=== PATIENT | male | born 1960 | race Caucasian/White ===

== ENCOUNTER 2017-07-26 16:37 | Inpatient (IN) | payer OTHER ==
[~2017-07-26] VITALS: Ht 193 cm; Wt 80.5 kg
[~2017-07-26 16:37] MED LIST: CALCIUM600 MG PO; DICLOFENAC SODI75 MG PO; KEFLEX500 MG PO; LANTUS100 UNITS/ SUB-Q; LOMOTIL TABLET1 EACH PO; METFORMIN HCL500 MG PO; MULTIVITAMINS1 EAC7 PO; NOVOLOG100 UNIT/1 SUB-Q; TAGAMET HB200 MG PO
[2017-07-26] MEDS ORDERED: LYRICA50 MG PO (17:15)
--- NOTE | 2017-07-27 07:29 | EKG ---
[facility] [address] [facility] [place] [address] Signed Accelerated Junctional rhythm Abnormal ECG No previous ECGs available Confirmed by HUGO SIMS MD [id number] on 07/27/2017 7:29:07 AM Electronically Signed By: HUGO SIMS MD 07/27/17 0729 PATIENT NAME: HORTENSIACLARK CINDA Electrocardiogram DATE OF : 62 PHYSICIAN: HUGO SIMS MD REPORT #: [id number] REPORT IS CONFIDENTIAL AND NOT TO BE RELEASED WITHOUT AUTHORIZATION
== END 2017-07-29 14:07 | disposition home or self-care (01) | DRG 871 ==
LOC: ED 16:37 → CCU 19:49
PROVIDERS: ADMIT Internal Medicine
PROC: 3E0234Z Introduction of Serum, Toxoid and Vaccine into Muscle, Percutaneous Approach (ICD-10-PCS; principal; 2017-07-26)
PROC: 3E033XZ Introduction of Vasopressor into Peripheral Vein, Percutaneous Approach (ICD-10-PCS; 2017-07-27)
PROC: 0BH17EZ Insertion of Endotracheal Airway into Trachea, Via Natural or Artificial Opening (ICD-10-PCS; 2017-07-28)
DX: A41.9 Sepsis, unspecified organism (principal); J69.0 Pneumonitis due to inhalation of food and vomit; E10.10 Type 1 diabetes mellitus with ketoacidosis without coma; L03.211 Cellulitis of face; L02.01 Cutaneous abscess of face; M25.551 Pain in right hip; Z91.19 Patient's noncompliance with other medical treatment and regimen; M70.71 Other bursitis of hip, right hip; Z79.4 Long term (current) use of insulin; Z23 Encounter for immunization; F17.200 Nicotine dependence, unspecified, uncomplicated; F15.11 Other stimulant abuse, in remission
CPT/HCPCS: 36415; 36600; 51702; 70490; 71045; 71250; 73700; 74176; 76536; 80048; 80053; 80202; 81001; 82010; 82803; 83605; 83735; 84100; 84484; 85025; 85379; 85384; 85651; 87040; 87070; 87075; 87077; 87186; 87205; 90715; 93005; 93010; 94640; 96361; 96365; 96366; 96367; 96375; 99285; J0295; J0696; J1200; J2060; J2310; J2550; J3370; J3475; J7030; J7042; J7050; J7120